=== PATIENT | male | born 1940 | race Caucasian/White ===

== ENCOUNTER 2016-10-24 22:00 | Observation (INO) | payer OTHER, BC ==
[~2016-10-24] VITALS: Ht 195.6 cm; Wt 139.0 kg
[~2016-10-24 22:00] MED LIST: BYSTOLIC10 MG PO; CALCIUM600 M1 PO; CENTRUM SILVER1 EAC3 PO; COUMADIN5 MG PO; COUMADIN7.5 MG PO; DEMADEX10 MG PO; FISH OIL 1,0001 EAC7 PO; HYDROCHLOROTHIA25 MG PO; K-DUR10 MEQ PO; LEVAQUIN500 MG PO; LOTREL 5/401 CAPSULE PO; MEVACOR20 MG PO; PRILOSEC10 MG PO; ST. JOSEPH ASPI81 MG PO; VENTOLIN HFA18 GM IH; WELLBUTRIN SR150 MG PO
[2016-10-24 23:18] LABS: HEMATOCRIT 50.6 % (38.0-50.0); MCH 29.8 PG (29.0-34.0); MCHC 32.6 G/DL (30.0-36.0); MCV 91.5 FL (86-99); MEAN PLAT.VOLUME 10.5 uM^3 (9.0-12.4); PLATELET COUNT 219 K/uL (156-360); RBC DIS.WIDTH-SD 47.3 % (39-53); RED BLOOD COUNT 5.53 M/uL (4.00-5.50); WHITE BLOOD COUNT 11.8 K/uL (4.1-10.2)
[2016-10-24 23:32] LABS: D-DIMER ELISA 0.29 mg/L FEU (< 0.57)
[2016-10-24 23:35] LABS: CHLORIDE 107 mEq/L (99-109); SODIUM 144 mEq/L (136-147)
[2016-10-24 23:36] LABS: GLUCOSE 133 mg/dL (70-99)
[2016-10-24 23:38] LABS: ANION GAP 13 MEQ/L (2-14)
[2016-10-24 23:40] LABS: GFR ESTIMATE (CALCULATED) > 59 mL/min/; TROP-I INTERPRETATION NEGATIVE; TROPONIN-I 0.01 ng/mL (0.0-0.30)
[2016-10-24 23:41] LABS: UREA NITROGEN (BUN) 15 mg/dL (9-23)
[2016-10-25] MEDS ORDERED: COUMADIN5 MG PO ×2 (00:43→00:44)
[2016-10-25] MEDS ORDERED: LOTREL 10/41 CAPSULE PO (00:45)
[2016-10-25] MEDS ORDERED: K-DUR10 MEQ PO (00:47)
[2016-10-25] MEDS ORDERED: PRILOSEC20 MG PO (00:48)
[2016-10-25] MEDS ORDERED: CARVEDILOL12.5 MG PO (00:49)
[2016-10-25] MEDS ORDERED: COCONUT OIL1000 MG PO (00:49)
[2016-10-25] MEDS ORDERED: GLUCOSAMINE-CH1 EA47 PO (00:49)
[2016-10-25 01:45] LABS: INTER. NORMALIZED RATIO 2.7; PROTHROMBIN TIME 28.1 (9.2-11.2); PTT 39.9 (25-32)
[2016-10-25 03:04] VITALS: BP 166/81
[2016-10-25 04:19] LABS: INFLUENZA A VIRAL ANTIGEN NEGATIVE; INFLUENZA B VIRAL ANTIGEN NEGATIVE
[2016-10-25 06:39] LABS: HEMATOCRIT 46.4 % (38.0-50.0); MCH 30.1 PG (29.0-34.0); MCV 91.3 FL (86-99); MEAN PLAT.VOLUME 10.3 uM^3 (9.0-12.4); PLATELET COUNT 209 K/uL (156-360); RBC DIS.WIDTH-CV 14.2 % (11.8-14.6); RBC DIS.WIDTH-SD 47.4 % (39-53); RED BLOOD COUNT 5.08 M/uL (4.00-5.50); WHITE BLOOD COUNT 13.2 K/uL (4.1-10.2)
[2016-10-25 07:05] LABS: ALKALINE PHOSPHATASE 92 IU/L (3-129); ANION GAP 9 MEQ/L (2-14); CHLORIDE 102 MEQ/L (99-109); GFR ESTIMATE (CALCULATED) > 59 mL/min/; GLUCOSE 108 mg/dL (70-99); POTASSIUM 3.8 MEQ/L (3.7-5.4); SAMPLE HEMOLYSIS CHECK 0; SAMPLE ICTERIC CHECK 0; SAMPLE LIPEMIA CHECK 0; SODIUM 139 MEQ/L (136-147); TOTAL BILIRUBIN 1.6 MG/DL (0.0-1.0); UREA NITROGEN (BUN) 14 mg/dL (9-23)
[2016-10-25 07:29] LABS: TROP-I INTERPRETATION NEGATIVE; TROPONIN-I 0.04 ng/mL (0.0-0.30)
[2016-10-25 07:46] VITALS: BP 138/77
[2016-10-25] MEDS ORDERED: LEVAQUIN500 MG PO (10:06)
[2016-10-25] MEDS ORDERED: DEMADEX10 MG PO (10:13)
[2016-10-25] MEDS ORDERED: LISINOPRIL5 MG PO (10:54)
[2016-10-25 11:26] VITALS: BP 142/79
[2016-10-25 12:21] LABS: TROP-I INTERPRETATION NEGATIVE; TROPONIN-I 0.03 ng/mL (0.0-0.30)
== END 2016-10-25 13:51 | disposition home or self-care (01) ==
LOC: EME 22:00 → EDOF 10-25 00:23 → 5WEST 10-25 02:28
PROVIDERS: Emergency Medicine; Internal Medicine; Physician Assistant
DX: I50.33 Acute on chronic diastolic (congestive) heart failure (principal); I48.91 Unspecified atrial fibrillation; I25.10 Atherosclerotic heart disease of native coronary artery without angina pectoris; G47.33 Obstructive sleep apnea (adult) (pediatric); Z79.01 Long term (current) use of anticoagulants; Z87.891 Personal history of nicotine dependence; K21.9 Gastro-esophageal reflux disease without esophagitis; F32.9 Major depressive disorder, single episode, unspecified
CPT/HCPCS: 71010; 71020; 71275; 80048; 80053; 83880; 84484; 85027; 85379; 85610; 85730; 87040; 87070; 87205; 87449; 87502; 93005; 94660; 99281; 99285; G0378; J1940; J1956

== ENCOUNTER 2017-01-28 09:26 | Observation (INO) | payer OTHER, BC ==
[~2017-01-28] VITALS: Ht 195.6 cm; Wt 134.7 kg
[~2017-01-28 09:26] MED LIST changes: +CARVEDILOL12.5 MG PO; +COCONUT OIL1000 MG PO; +GLUCOSAMINE-CH1 EA47 PO; +LISINOPRIL5 MG PO; +LOTREL 10/41 CAPSULE PO; +PRILOSEC20 MG PO
[2017-01-28 10:08] LABS: BASOPHIL COUNT 0.1 K/uL (0-0.1); EOSINOPHIL (%) 3.2 % (0-5); EOSINOPHIL COUNT 0.2 K/uL (0-0.3); HEMATOCRIT 49.7 % (38.0-50.0); IMMATURE GRANULOCYTE (%) 0.6 % (0.0-0.7); INSTRUMENT ABS NEUTROPHIL CT 4.7 K/uL; LYMPHOCYTE COUNT 0.8 K/uL (1.0-2.8); MCH 29.2 PG (29.0-34.0); MCHC 31.8 G/DL (30.0-36.0); MCV 91.9 FL (86-99); MEAN PLAT.VOLUME 10.7 uM^3 (9.0-12.4); MONOCYTE (%) 7.3 % (3-12); MONOCYTE COUNT 0.5 K/uL (0-0.8); NEUTROPHIL (%) 75.7 % (45-76); NEUTROPHIL COUNT 4.7 K/uL (1.8-6.4); PLATELET COUNT 194 K/uL (156-360); RBC DIS.WIDTH-CV 14.6 % (11.8-14.6); RBC DIS.WIDTH-SD 49.2 % (39-53); RED BLOOD COUNT 5.41 M/uL (4.00-5.50); WHITE BLOOD COUNT 6.2 K/uL (4.1-10.2)
[2017-01-28 10:17] LABS: INTER. NORMALIZED RATIO 2.4; PROTHROMBIN TIME 25.6 (9.2-11.2); PTT 35.2 (25-32)
[2017-01-28 10:29] LABS: ANION GAP 9 MEQ/L (2-14); CHLORIDE 105 MEQ/L (99-109); POTASSIUM 3.8 MEQ/L (3.7-5.4); SAMPLE HEMOLYSIS CHECK 0; SAMPLE ICTERIC CHECK 0; SAMPLE LIPEMIA CHECK 0; SODIUM 142 MEQ/L (136-147)
[2017-01-28 10:35] LABS: GFR ESTIMATE (CALCULATED) > 59 mL/min/; GLUCOSE 133 mg/dL (70-99); UREA NITROGEN (BUN) 19 mg/dL (9-23)
[2017-01-28 10:40] LABS: TROP-I INTERPRETATION NEGATIVE; TROPONIN-I 0.02 ng/mL (0.0-0.30)
[2017-01-28] MEDS ORDERED: LISINOPRIL5 MG PO (12:44)
[2017-01-28] MEDS ORDERED: KLOR-CON M1515 MEQ PO (12:46)
[2017-01-28] MEDS ORDERED: TRAMADOL HCL50 MG PO (12:48)
[2017-01-28 13:55] VITALS: BP 123/81
[2017-01-28 17:57] VITALS: BP 153/76
[2017-01-28 18:27] LABS: TROP-I INTERPRETATION NEGATIVE; TROPONIN-I 0.04 ng/mL (0.0-0.30)
[2017-01-28 21:00] VITALS: BP 152/84
[2017-01-28 23:48] LABS: TROP-I INTERPRETATION NEGATIVE; TROPONIN-I 0.02 ng/mL (0.0-0.30)
[2017-01-28 23:59] VITALS: BP 146/79
[2017-01-29 04:00] VITALS: BP 158/76
[2017-01-29 07:04] VITALS: BP 162/89
[2017-01-29 07:13] LABS: INTER. NORMALIZED RATIO 2.6; PROTHROMBIN TIME 26.8 (9.2-11.2)
[2017-01-29] MEDS ORDERED: LORATADINE10 M2 PO (10:37)
== END 2017-01-29 12:16 | disposition home or self-care (01) ==
LOC: EME → EDBD 09:26 → 5WEST 12:25 → EDOF 12:25 → 5WEST 13:42
PROVIDERS: Emergency Medicine; Internal Medicine
DX: R06.02 Shortness of breath (principal); I48.2 Chronic atrial fibrillation; I11.0 Hypertensive heart disease with heart failure; I50.33 Acute on chronic diastolic (congestive) heart failure; Z91.11 Patient's noncompliance with dietary regimen; Z91.14 Patient's other noncompliance with medication regimen; I27.2 Other secondary pulmonary hypertension; K21.9 Gastro-esophageal reflux disease without esophagitis; I49.3 Ventricular premature depolarization; R09.02 Hypoxemia; G47.33 Obstructive sleep apnea (adult) (pediatric); I25.10 Atherosclerotic heart disease of native coronary artery without angina pectoris; F32.9 Major depressive disorder, single episode, unspecified; E66.01 Morbid (severe) obesity due to excess calories; Z68.35 Body mass index [BMI] 35.0-35.9, adult; Z87.891 Personal history of nicotine dependence
CPT/HCPCS: 71010; 80048; 83880; 84484; 85025; 85610; 85730; 93005; 94660; 94799; 99281; 99284; G0378; J1940

== ENCOUNTER 2017-04-23 10:47 | Observation (INO) | payer OTHER, BC ==
[~2017-04-23] VITALS: Ht 195.6 cm; Wt 132.2 kg
[~2017-04-23 10:47] MED LIST changes: +CALCIUM 600 +1 EA16 PO; -CALCIUM600 M1 PO; +KLOR-CON M1515 MEQ PO; +LISINOPRIL10 MG PO; +LORATADINE10 M2 PO; +TRAMADOL HCL50 MG PO
[2017-04-23 11:21] LABS: HEMATOCRIT 51.6 % (38.0-50.0); MCH 30.6 PG (29.0-34.0); MCHC 32.9 G/DL (30.0-36.0); MCV 92.8 FL (86-99); MEAN PLAT.VOLUME 10.4 uM^3 (9.0-12.4); PLATELET COUNT 211 K/uL (156-360); RBC DIS.WIDTH-CV 14.6 % (11.8-14.6); RBC DIS.WIDTH-SD 50.4 % (39-53); RED BLOOD COUNT 5.56 M/uL (4.00-5.50)
[2017-04-23 11:28] LABS: CHLORIDE 104 mEq/L (99-109); POTASSIUM 4.2 mEq/L (3.7-5.4); SODIUM 143 mEq/L (136-147)
[2017-04-23 11:29] LABS: GLUCOSE 96 mg/dL (70-99)
[2017-04-23 11:31] LABS: ANION GAP 11 MEQ/L (2-14)
[2017-04-23 11:33] LABS: GFR ESTIMATE (CALCULATED) 57 mL/min/
[2017-04-23 11:34] LABS: UREA NITROGEN (BUN) 17 mg/dL (9-23)
[2017-04-23 11:40] LABS: TROP-I INTERPRETATION NEGATIVE; TROPONIN-I 0.04 ng/mL (0.0-0.30)
[2017-04-23 15:08] LABS: D-DIMER ELISA < 150.00 ng/mLDDU (<230)
[2017-04-23] MEDS ORDERED: CLARITIN,ALAVAR10 MG PO (15:23)
[2017-04-23] MEDS ORDERED: DEMADEX20 MG PO (15:24)
[2017-04-23] MEDS ORDERED: VENTOLIN HFA18 GM IH (15:25)
[2017-04-23 16:24] VITALS: BP 188/90
[2017-04-23 17:33] LABS: TROP-I INTERPRETATION NEGATIVE; TROPONIN-I 0.03 ng/mL (0.0-0.30)
[2017-04-23 18:16] LABS: INTER. NORMALIZED RATIO 3.2; PROTHROMBIN TIME 37.4 SEC (10.2-12.9)
[2017-04-23 18:18] LABS: TROP-I INTERPRETATION NEGATIVE; TROPONIN-I 0.02 ng/mL (0.0-0.30)
[2017-04-23 20:00] VITALS: BP 152/84
[2017-04-24] VITALS: BP 172/90
[2017-04-24 03:59] VITALS: BP 132/84
[2017-04-24 05:23] LABS: MCH 31.8 PG (29.0-34.0); MCHC 34.3 G/DL (30.0-36.0); MCV 92.7 FL (86-99); MEAN PLAT.VOLUME 10.5 uM^3 (9.0-12.4); PLATELET COUNT 208 K/uL (156-360); RBC DIS.WIDTH-CV 14.7 % (11.8-14.6); RBC DIS.WIDTH-SD 50.2 % (39-53); RED BLOOD COUNT 5.07 M/uL (4.00-5.50); WHITE BLOOD COUNT 8.7 K/uL (4.1-10.2)
[2017-04-24 05:50] LABS: INTER. NORMALIZED RATIO 2.9; PROTHROMBIN TIME 33.2 SEC (10.2-12.9)
[2017-04-24 07:02] VITALS: BP 180/100
[2017-04-24 07:59] LABS: ANION GAP 10 MEQ/L (2-14); CHLORIDE 103 MEQ/L (99-109); GFR ESTIMATE (CALCULATED) > 59 mL/min/; GLUCOSE 99 mg/dL (70-99); POTASSIUM 3.7 MEQ/L (3.7-5.4); SAMPLE HEMOLYSIS CHECK 0; SAMPLE ICTERIC CHECK 0; SAMPLE LIPEMIA CHECK 0; SODIUM 141 MEQ/L (136-147); UREA NITROGEN (BUN) 14 mg/dL (9-23)
[2017-04-24] MEDS ORDERED: AMLODIPINE BESYL5 MG PO (15:36)
[2017-04-24] MEDS ORDERED: LISINOPRIL20 MG PO (15:36)
== END 2017-04-24 16:37 | disposition home or self-care (01) ==
LOC: EME 10:47 → EDOF 14:14 → 5WEST 14:14 → EDOF 14:14 → ENRESERV 14:22 → 5WEST 15:58
PROVIDERS: Internal Medicine; Physician Assistant
DX: R06.02 Shortness of breath (principal); I48.0 Paroxysmal atrial fibrillation; I11.0 Hypertensive heart disease with heart failure; I50.30 Unspecified diastolic (congestive) heart failure; I48.2 Chronic atrial fibrillation; R94.31 Abnormal electrocardiogram [ECG] [EKG]; I25.10 Atherosclerotic heart disease of native coronary artery without angina pectoris; I27.2 Other secondary pulmonary hypertension; G47.33 Obstructive sleep apnea (adult) (pediatric); E66.9 Obesity, unspecified; Z68.35 Body mass index [BMI] 35.0-35.9, adult; Z79.01 Long term (current) use of anticoagulants; F32.9 Major depressive disorder, single episode, unspecified; K21.9 Gastro-esophageal reflux disease without esophagitis; Z79.82 Long term (current) use of aspirin; Z87.891 Personal history of nicotine dependence; E78.5 Hyperlipidemia, unspecified
CPT/HCPCS: 71020; 80048; 83880; 84484; 85027; 85379; 85610; 93005; 99202; 99281; 99285; G0378; J0360

== ENCOUNTER → 2017-10-12 | Outpatient (CLI) | payer OTHER, BC ==
[~2017-10-12] MED LIST changes: +AMLODIPINE BESYL5 MG PO; +CLARITIN,ALAVAR10 MG PO; +DEMADEX20 MG PO; +LISINOPRIL20 MG PO
[2017-10-12 08:11] LABS: INTER. NORMALIZED RATIO 1.2
[2017-10-12 08:13] LABS: PTT 31.5 SEC (25-37)
== END | disposition home or self-care (01) ==
LOC: OPR 07:22 → EDSTATUS 08:00
PROVIDERS: Internal Medicine
PROC: 0FB03ZX Excision of Liver, Percutaneous Approach, Diagnostic (ICD-10-PCS; principal; 2017-10-12)
DX: K74.0 Hepatic fibrosis (principal)
CPT/HCPCS: 77012; 85610; 85730; 88305; J3010

== ENCOUNTER → 2017-11-18 | Outpatient (CLI) | payer OTHER, BC ==
[~2017-11-18] VITALS: Ht 195.6 cm; Wt 131.5 kg
== END | disposition home or self-care (01) ==
LOC: AMB 07:43
PROC: 0DJD8ZZ Inspection of Lower Intestinal Tract, Via Natural or Artificial Opening Endoscopic (ICD-10-PCS; principal; 2017-11-18)
DX: R16.0 Hepatomegaly, not elsewhere classified (principal); I48.91 Unspecified atrial fibrillation; I50.9 Heart failure, unspecified; E78.5 Hyperlipidemia, unspecified; I10 Essential (primary) hypertension; E66.9 Obesity, unspecified; Z79.82 Long term (current) use of aspirin; Z80.49 Family history of malignant neoplasm of other genital organs; Z87.891 Personal history of nicotine dependence

== ENCOUNTER → 2017-12-29 | Outpatient (CLI) | payer OTHER, BC ==
[~2017-12-29] MED LIST changes: +AMLODIPINE-BEN1 EAC4 PO
== END | disposition home or self-care (01) ==
LOC: OPR 08:27 → EDSTATUS 09:00
PROC: 0FB03ZX Excision of Liver, Percutaneous Approach, Diagnostic (ICD-10-PCS; principal; 2017-12-29)
DX: K74.0 Hepatic fibrosis (principal); I11.0 Hypertensive heart disease with heart failure; I50.9 Heart failure, unspecified; I48.91 Unspecified atrial fibrillation; J98.4 Other disorders of lung
CPT/HCPCS: 71045; 77012; 88305; 88313

== ENCOUNTER 2018-02-19 12:31 | Emergency (ER) | payer OTHER, BC ==
[~2018-02-19] VITALS: Ht 195.6 cm; Wt 132.0 kg
[2018-02-19] MEDS ORDERED: FLEXERIL10 MG PO (14:03)
[2018-02-19] MEDS ORDERED: PERCOCET 5/31 TABLET PO (14:03)
[2018-02-19] MEDS ORDERED: MOTRIN600 MG PO (14:03)
[2018-02-19 14:22] VITALS: BP 185/99
== END 2018-02-19 14:49 | disposition home or self-care (01) ==
LOC: EME 12:31
DX: S70.01XA Contusion of right hip, initial encounter (principal); W18.30XA Fall on same level, unspecified, initial encounter; I10 Essential (primary) hypertension; Z79.01 Long term (current) use of anticoagulants; Z79.82 Long term (current) use of aspirin; Z87.891 Personal history of nicotine dependence
CPT/HCPCS: 73502; 99281; 99284

== ENCOUNTER 2018-02-25 21:54 | Emergency (ER) | payer OTHER, BC ==
[~2018-02-25] VITALS: Ht 195.6 cm; Wt 131.8 kg
[~2018-02-25 21:54] MED LIST changes: +FLEXERIL10 MG PO; +MOTRIN600 MG PO; +PERCOCET 5/31 TABLET PO
[2018-02-25 22:01] VITALS: BP 152/85
== END 2018-02-26 01:43 | disposition home or self-care (01) ==
LOC: EXP 21:54 → EME 21:54 → EXP 02-26 01:43
DX: M54.41 Lumbago with sciatica, right side (principal); M25.551 Pain in right hip; Z91.81 History of falling; I10 Essential (primary) hypertension; I48.91 Unspecified atrial fibrillation; Z79.01 Long term (current) use of anticoagulants; Z79.82 Long term (current) use of aspirin
CPT/HCPCS: 72131; J1100; J3010

== ENCOUNTER 2018-02-27 23:13 | Inpatient (IN) | payer OTHER, BC ==
[~2018-02-27] VITALS: Ht 195.6 cm; Wt 135.0 kg
[2018-02-28 04:51] LABS: HEMATOCRIT 46.8 % (38.0-50.0); HEMOGLOBIN 15.9 G/DL (12.5-16.6); MCH 31.1 PG (29.0-34.0); MCV 91.4 FL (86-99); PLATELET COUNT 256 K/uL (156-360); RBC DIS.WIDTH-SD 47.3 % (39-53); RED BLOOD COUNT 5.12 M/uL (4.00-5.50); WHITE BLOOD COUNT 13.1 K/uL (4.1-10.2)
[2018-02-28 05:02] LABS: CHLORIDE 105 mEq/L (99-109); POTASSIUM 3.9 mEq/L (3.7-5.4); SODIUM 141 mEq/L (136-147)
[2018-02-28 05:04] LABS: GLUCOSE 104 mg/dL (70-99)
[2018-02-28 05:07] LABS: CREATININE 0.8 mg/dL (0.6-1.3); GFR ESTIMATE (CALCULATED) > 59 mL/min/ (58.99-99999)
[2018-02-28 05:08] LABS: UREA NITROGEN (BUN) 21 mg/dL (9-23)
[2018-02-28] MEDS ORDERED: KLOR-CON 1010 ME1 PO ×2 (07:59→08:00)
[2018-02-28 17:30] VITALS: BP 173/90
[2018-02-28 18:48] LABS: INTER. NORMALIZED RATIO 3.5
[2018-02-28 20:05] VITALS: BP 160/77
[2018-03-01] VITALS (8 sets, daily range): BP systolic 138–177; BP diastolic 70–98
[2018-03-01 06:39] LABS: PTT 35.8 SEC (25-37)
[2018-03-01 06:43] LABS: INTER. NORMALIZED RATIO 2.2
[2018-03-01 17:08] LABS: INTER. NORMALIZED RATIO 1.8
[2018-03-02] VITALS (8 sets, daily range): BP systolic 134–162; BP diastolic 68–90
[2018-03-02 06:25] LABS: INTER. NORMALIZED RATIO 1.4
[2018-03-02 06:27] LABS: PTT 27.2 SEC (25-37)
[2018-03-02 14:40] LABS: INTER. NORMALIZED RATIO 1.4
[2018-03-03 03:38] VITALS: BP 160/78
[2018-03-03 06:06] LABS: BASOPHIL (%) 0.2 % (0-1); EOSINOPHIL (%) 0.3 % (0-5); EOSINOPHIL COUNT 0.1 K/uL (0-0.3); HEMATOCRIT 45.3 % (38.0-50.0); HEMOGLOBIN 14.9 G/DL (12.5-16.6); IMMATURE GRANULOCYTE (%) 1.1 % (0.0-0.7); LYMPHOCYTE (%) 6.1 % (15-42); LYMPHOCYTE COUNT 0.9 K/uL (1.0-2.8); MCH 30.2 PG (29.0-34.0); MCHC 32.9 G/DL (30.0-36.0); MCV 91.7 FL (86-99); MONOCYTE (%) 9.9 % (3-12); MONOCYTE COUNT 1.5 K/uL (0-0.8); NEUTROPHIL (%) 82.4 % (45-76); NEUTROPHIL COUNT 12.4 K/uL (1.8-6.4); PLATELET COUNT 304 K/uL (156-360); RBC DIS.WIDTH-CV 14.1 % (11.8-14.6); RBC DIS.WIDTH-SD 47.5 % (39-53); RED BLOOD COUNT 4.94 M/uL (4.00-5.50); WHITE BLOOD COUNT 15.1 K/uL (4.1-10.2)
[2018-03-03 06:14] LABS: INTER. NORMALIZED RATIO 1.5
[2018-03-03 06:20] LABS: CHLORIDE 102 MEQ/L (99-109); CREATININE 0.8 MG/DL (0.6-1.3); GFR ESTIMATE (CALCULATED) > 59 mL/min/ (58.99-99999); GLUCOSE 130 mg/dL (70-99); POTASSIUM 4.4 MEQ/L (3.7-5.4); SODIUM 141 MEQ/L (136-147); UREA NITROGEN (BUN) 16 mg/dL (9-23)
[2018-03-03 08:25] VITALS: BP 186/68
[2018-03-03 14:07] LABS: INTER. NORMALIZED RATIO 1.5
[2018-03-03 16:18] VITALS: BP 138/64
[2018-03-03 18:44] LABS: APPEARANCE SL.HAZY ((CLEAR)); BILIRUBIN NEGATIVE; BLOOD MODERATE; COLOR YELLOW ((YELLOW)); GLUCOSE (STRIP) NEGATIVE; KETONES NEGATIVE; LEUKOCYTES NEGATIVE; NITRITE NEGATIVE; PROTEIN (STRIP) 100; SPECIFIC GRAVITY 1.028 (1.000-1.030); UROBILINOGEN 0.2 MG/DL (0.2-1.0)
[2018-03-03 18:51] LABS: BACTERIA NONE SEEN /HPF; EPITHELIAL CELLS RARE /HPF; MUCUS TRACE /LPF; RED BLOOD CELLS 0-5 /HPF (0-5); WHITE BLOOD CELLS 0-5 /HPF (0-5)
[2018-03-03 20:00] VITALS: BP 125/78
[2018-03-03 20:03] VITALS: BP 125/78
[2018-03-04 00:10] VITALS: BP 132/79
[2018-03-04 00:34] VITALS: BP 172/82
[2018-03-04 03:53] VITALS: BP 145/78
[2018-03-04 06:19] LABS: HEMATOCRIT 41.9 % (38.0-50.0); HEMOGLOBIN 14.1 G/DL (12.5-16.6); MCV 90.9 FL (86-99)
[2018-03-04 06:25] LABS: INTER. NORMALIZED RATIO 1.8
[2018-03-04 08:06] VITALS: BP 190/90
[2018-03-04] MEDS ORDERED: PERCOCET 5/31 TABLET PO ×2 (09:56→10:26)
[2018-03-04] MEDS ORDERED: DOCUSATE SODIU100 MG PO ×2 (09:56→10:25)
[2018-03-04] MEDS ORDERED: TRAMADOL HCL50 MG PO ×2 (09:56→10:26)
[2018-03-04 14:11] LABS: INTER. NORMALIZED RATIO 1.9
[2018-03-04 15:34] VITALS: BP 146/83
== END 2018-03-04 17:02 | DRG 470 ==
LOC: EME → EDBD 23:13 → EME 23:13 → EDOF 02-28 05:23 → 3EAST 02-28 05:23 → ENRESERV 02-28 05:37 → 3EAST 02-28 12:26
PROVIDERS: Emergency Medicine; Hospitalist; Internal Medicine; Orthopaedic Surgery
PROC: 30233K1 Transfusion of Nonautologous Frozen Plasma into Peripheral Vein, Percutaneous Approach (ICD-10-PCS; 2018-03-01)
PROC: 0SRR0J9 Replacement of Right Hip Joint, Femoral Surface with Synthetic Substitute, Cemented, Open Approach (ICD-10-PCS; principal; 2018-03-02)
DX: S72.011A Unspecified intracapsular fracture of right femur, initial encounter for closed fracture (principal); W19.XXXA Unspecified fall, initial encounter; R29.6 Repeated falls; I11.0 Hypertensive heart disease with heart failure; I50.32 Chronic diastolic (congestive) heart failure; E66.01 Morbid (severe) obesity due to excess calories; K21.9 Gastro-esophageal reflux disease without esophagitis; F32.9 Major depressive disorder, single episode, unspecified; M48.061 Spinal stenosis, lumbar region without neurogenic claudication; J44.9 Chronic obstructive pulmonary disease, unspecified; I27.20 Pulmonary hypertension, unspecified; G47.33 Obstructive sleep apnea (adult) (pediatric); I48.2 Chronic atrial fibrillation; I25.10 Atherosclerotic heart disease of native coronary artery without angina pectoris; E78.5 Hyperlipidemia, unspecified; R79.1 Abnormal coagulation profile; T45.515A Adverse effect of anticoagulants, initial encounter; K59.00 Constipation, unspecified; Z87.891 Personal history of nicotine dependence; Z79.01 Long term (current) use of anticoagulants; Z79.82 Long term (current) use of aspirin
CPT/HCPCS: 72131; 72148; 73502; 73552; 73721; 80048; 81003; 85014; 85018; 85025; 85027; 85610; 85730; 86850; 86900; 86901; 87086; 93005; 94799; 99281; 99283; 99285; C1713; J0131; J0330; J0690; J1100; J1170; J2250; J2405; J2710; J3010; J3430; J7030; J7050; J7120; J7643; P9017